=== PATIENT | male | born 1960 | race Caucasian/White ===

== ENCOUNTER 2016-11-04 11:00 | Inpatient (IN) | payer OTHER ==
--- NOTE | ~2016-11-04 | PN ---
Unit #: [id number] #: [id number] Patient: ERA DELGADILLO [id number] [facility] [address] [place] [address] [id number] I MR#: [id number] NAME: ERA DELGADILLO ROOM: P211 Age: 56 Sex: M Admission Date: 11/04/2016 : 1960 Attending Physician: Bria Winchester M.D. Admitting Physician: Bria Winchester M.D. Primary Care Physician: Primary Care Physician Ely BRANDON NOTES DATE 11/10/2016 DISCUSSION Mr. Delgadillo is a 56-year-old white male with substance abuse and mood disorder who was seen today and chart was reviewed and case was discussed with the staff who report patient has been anxious, withdrawn and seclusive to himself and has not been functioning very well as he has not been able to take care of himself and had a fall yesterday. Since then, he has been put on falls precaution and a wheelchair has been provided to him as well. However, his expectation that he does not want to take care of himself at all and nursing has been concerned if he is at a proper treatment level as he is expecting caretaking around the clock. As such, will re-evaluate him and will make further treatment decisions accordingly. Dictated by... Jannie Torres/leo TD: 11/10/2016 20:50 JOB #: [id number] ONDINA BRANDON NOTES Page 1 of 1 X Bria Winchester MD X PROGRESS NOTE
--- NOTE | ~2016-11-04 | PN ---
Unit #: [id number] #: [id number] Patient: ERA DELGADILLO [id number] [facility] [address] [place] [address] [id number] I MR#: [id number] NAME: ERA DELGADILLO. ROOM: P211 Age: 56 Sex: M Admission Date: 11/04/2016 : 1960 Attending Physician: Bria Winchester M.D. Admitting Physician: Bria Winchester M.D. Primary Care Physician: Primary Care Physician Ely [place] PROGRESS NOTES DATE 11/05/2016 DISCUSSION Mr. Delgadillo is a 56-year-old white male who was seen today and chart was reviewed and case was discussed with the staff. He has been seclusive to himself. Meanwhile, he has been cooperative with treatment recommendations and has been taking medications and tolerating them fairly well with no reported side effects. MENTAL STATUS EXAMINATION Middle-aged white male who was casually dressed with fair personal hygiene and appears to be in no acute distress or discomfort. He was awake and alert on interaction with intact orientation. His mood was anxious with congruent affect. He denies any suicidal or homicidal ideations. His insight and judgement remains slightly impaired. TREATMENT PLAN 1. Will continue on his current medications and treatment protocol. Will monitor his response and make further adjustments as needed. 2. Will continue to follow up. Dictated by... Jannie Torres/leo TD: 11/05/2016 17:48 JOB #: [id number] Unit #: [id number] #: [id number] Patient: ERA DELGADILLO ONDINA PROGRESS NOTES Page 1 of 1 X Bria Winchester MD PROGRESS NOTE
--- NOTE | ~2016-11-04 | PN ---
Unit #: [id number] #: [id number] Patient: ERA THAPA [id number] [facility] [address] [place] [address] [id number] I MR#: [id number] NAME: ERA THAPA. ROOM: P211 Age: 56 Sex: M Admission Date: 11/04/2016 : 1960 Attending Physician: Bria Winchester M.D. Admitting Physician: Bria Winchester M.D. Primary Care Physician: Primary Care Physician Ely BRANDON NOTES DATE OF SERVICE 11/07/2016 DISCUSSION Mr. Thapa is a 56-year-old white male who was seen today. Chart was reviewed and case was discussed with the staff. He has been anxious, restless, withdrawn, and rather seclusive to himself and does appear to be in some distress and discomfort. Meanwhile, he has been cooperative with the treatment recommendations and has been taking the medications and tolerating them fairly well with no reported side effects. MENTAL STATUS EXAMINATION Middle-aged white male who is casually dressed with fair personal hygiene, appears to be in slight distress or discomfort. He was awake and alert on interaction with intact orientation. His mood is anxious with congruent affect. His speech is slow and restricted in content. His insight and judgment remain significantly impaired. TREATMENT PLAN 1. We will continue him on his current medications and treatment protocol. We will monitor his response to the medications and make further adjustments as needed. 2. We will continue to follow up. Dictated by... Bria Winchester M.D. IAA/bzg TD: 11/08/2016 12:55 JOB #: [id number] Unit #: [id number] #: [id number] Patient: ERA THAPA DENZELAURORA PROGRESS NOTES Page 1 of 1 X Bria Winchester MD PROGRESS NOTE
--- NOTE | ~2016-11-04 | PN ---
Unit #: [id number] #: [id number] Patient: ERA DELGADILLO [id number] [facility] [address] [place] [address] [id number] I MR#: [id number] NAME: ERA DELGADILLO. ROOM: P211 Age: 56 Sex: M Admission Date: 11/04/2016 : 1960 Attending Physician: Bria Winchester M.D. Admitting Physician: Bria Winchester M.D. Primary Care Physician: Primary Care Physician Ely BRANDON NOTES DATE OF SERVICE: 11/08/2016 SUBJECTIVE Mr. Delgadillo is a 56-year-old white male with substance abuse and mood disorder, who was seen today and chart was reviewed, and case was discussed with the staff. He remains anxious, withdrawn, depressed, and rather seclusive to himself and blunted affect and minimal interaction. Meanwhile, he has been cooperative with treatment recommendations and has been taking the medications and tolerating them fairly well with no reported side effects. MENTAL STATUS EXAMINATION Middle-aged white male who was casually dressed with fair personal hygiene, and appears to be in no acute distress or discomfort. He was awake and alert on interaction with intact orientation. His mood was anxious with a congruent affect. He denies any suicidal or homicidal ideations. His insight and judgment remain slightly impaired. TREATMENT PLAN 1. We will continue him on his current medications and treatment protocol. We will monitor his response to the medications and make further adjustments as needed. 2. We will continue to follow up. Dictated by... Jannie Torres/eri TD: 11/08/2016 11:06 JOB #: [id number] Unit #: [id number] #: [id number] Patient: ERA DELGADILLO ONDINA PROGRESS NOTES Page 1 of 1 X Bria Winchester MD PROGRESS NOTE
--- NOTE | ~2016-11-04 | HP ---
Unit #: [id number] #: [id number] Patient: JUAN DELGADILLO [id number] [place] [address] [id number] I MR#: [id number] NAME: JUAN DELGADILLO. ROOM: P211 Age: 56 Sex: M Admission Date: 11/04/2016 : 1960 Attending Physician: Bria Winchester M.D. Admitting Physician: Bria Winchester M.D. Primary Care Physician: Primary Care Physician No HISTORY AND PHYSICAL HISTORY OF PRESENT ILLNESS Juan is a 56 year old admitted to [address] [place] [address] because of his abuse of alcohol. He is detoxing. PAST MEDICAL HISTORY 1. Long history of alcohol abuse. 2. High blood pressure. 3. Hepatitis C. PAST SURGICAL HISTORY Nothing reported. ALLERGIES No known drug allergies. SOCIAL HISTORY Smokes 1/2 pack per day. Drinks 16 malt liquors on a daily basis and denies illicit drug use. FAMILY HISTORY Medically noncontributory. REVIEW OF SYSTEMS CONSTITUTIONAL: No fever or chills. HEENT: Denies any sore throat, ear pain or runny nose. CARDIOVASCULAR: Denies chest pain, irregular heart rhythm or palpitations. CHEST: Denies shortness of breath or cough. No hemoptysis. GASTROINTESTINAL: Denies nausea, vomiting, diarrhea or chronic constipation. ENDOCRINE: Denies history of increased thirst or urination. No recent significant weight loss or gain. GENITOURINARY: Denies dysuria, frequency, or hematuria. SKIN: Denies any rashes. HEMATOLOGIC: Denies history of increased bleeding or bruising. MUSCULOSKELETAL: Denies any hot, swollen joints. No generalized muscle pain. NEUROLOGIC: Denies problems with vision or speech. No frequent, severe headaches. No numbness, tingling or weakness in any extremities. Denies loss of bladder or bowel control. CURRENT MEDICATIONS 1. Detox protocol. 2. Neurontin 300 mg t.i.d. Unit #: [id number] #: [id number] Patient: JUAN DELGADILLO 3. Zyprexa 7.5 mg daily. 4. Catapres 0.2 mg b.i.d. 5. Lopressor 50 mg b.i.d. 6. Zestril 20 mg daily. PHYSICAL EXAMINATION GENERAL: Alert, thin, in no apparent distress. VITAL SIGNS: Blood pressure 114/80, heart rate 80, respirations 16, temperature 98.6. WEIGHT: 140. HEIGHT: 5 feet 8 inches. SKIN: Warm and dry without rash or lesion. HEENT: Normocephalic. TMs not viewed. Oral and nasal passages clear. Conjunctivae clear. PERRLA. EOMs intact. NECK: Supple without lymphadenopathy or thyromegaly. HEART: Regular rate and rhythm without murmur. LUNGS: Clear. ABDOMEN: Soft, nontender. : Not done. EXTREMITIES: No evidence of cyanosis, clubbing or edema. Moves all without focal deficit. NEUROLOGICAL: Grossly within normal limits. Cranial Nerves: II: Visual orr are intact. III, IV AND : Extraocular movements are intact. Pupils are equal, round and reactive to light. V: Facial sensation is grossly normal. VII: Facial movements and expression are normal. VIII: Auditory acuity grossly intact. IX, X: Uvula is midline. Phonation is normal. XI: Patient shrugs shoulders and turns head normally. XII: Tongue protrudes in the midline. Sensory and Motor Function: Sensory and motor sensation is grossly normal. Motor: moves all extremities well. Coordination: Gait is normal. Deep Tendon Reflexes: Intact. IMPRESSION Psychiatric admission. RECOMMENDATIONS PSYCHIATRIC: Per psychiatrist. MEDICAL: See no contraindication to participate in facility's activities. MEDICAL PROGNOSIS Good. MEDICAL CONDITION Stable. Dictated by... Isabel Benson P.A.-C. for Jannie Rich/leo TD: 11/05/2016 22:03 JOB #: [id number] Unit #: [id number] #: [id number] Patient: JUAN DELGADILLO HISTORY AND PHYSICAL Page 1 of 1 X Isabel Benson X HISTORY AND PHYSICAL
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
--- NOTE | ~2016-11-04 | PN ---
Unit #: [id number] #: [id number] Patient: ERA DELGADILLO [id number] [facility] [address] [place] [address] [id number] I MR#: [id number] NAME: ERA DELGADILLO. ROOM: P211 Age: 56 Sex: M Admission Date: 11/04/2016 : 1960 Attending Physician: Bria Winchester M.D. Admitting Physician: Bria Winchester M.D. Primary Care Physician: Primary Care Physician Ely [place] PROGRESS NOTES DATE 11/06/2016 DISCUSSION Mr. Delgadillo is a 56-year-old, white male who was seen today and chart was reviewed and case was discussed with the staff. He has been anxious, withdrawn rather seclusive to himself. Meanwhile, he has been cooperative with treatment recommendations. He has been taking the medication and tolerating them fairly well with no reported side effects. MENTAL STATUS EXAM Middle-aged white male who was casually dressed with fair personal hygiene, appears to be in no acute distress or discomfort. He was awake and alert on interaction with intact orientation. His mood was anxious with congruent affect. His speech was slow and goal directed. He denies any suicidal or homicidal ideation. His insight and judgement remains slightly impaired. TREATMENT PLAN 1. We will continue him on his current medications and treatment protocol. We will monitor his response to the medication and make further adjustments as needed. 2. We will continue to follow up. Dictated by... Jannie Torres/catrachito TD: 11/07/2016 20:57 JOB #: [id number] Unit #: [id number] #: [id number] Patient: ERA DELGADILLO PROGRESS NOTES Page 1 of 1 X Bria Winchester MD PROGRESS NOTE
--- NOTE | ~2016-11-04 | DS ---
Unit #: [id number] #: [id number] Patient: ERA THAPA [id number] [place] [address] [id number] I MR#: [id number] NAME: ERA THAPA. ROOM: [facility] Age: 56 Sex: M Admission Date: 11/04/2016 : 1960 Discharge Date: 11/11/2016 Attending Physician: Bria Winchester M.D. Primary Care Physician: Primary Care Physician No DISCHARGE SUMMARY IDENTIFICATION DATA Mr. Thapa is a 56-year-old white male with history of mood disorder who was self-referred to the hospital. DISCHARGE DIAGNOSES PSYCHIATRIC: Bipolar disorder, most recent episode, depressed, recurrent, moderate, without psychotic features. Alcohol dependence, moderate, in acute withdrawals. MEDICAL: Hypertension. STRESSORS: Moderate psychosocial stressors. HISTORY OF PRESENT ILLNESS Same as in initial psychiatric evaluation. PAST PSYCHIATRIC HISTORY Same as in initial psychiatric evaluation. PAST MEDICAL HISTORY Same as in initial psychiatric evaluation. HOSPITAL COURSE The patient was admitted to the adult psychiatric and chemical dependence unit at [facility] and was oriented to the hospital environment. Routine p.r.n. medications were initiated, and he was started back on his home medications. Medications were adjusted and detox protocol for alcohol was initiated as well, and he was closely monitored. He was taking the medications regularly and was tolerating them fairly well and was able to show a decent therapeutic response with improvement in depression and anxiety and is willing to continue treatment on outpatient basis. As such it was decided that he will be discharged, and we will continue treatment on outpatient basis. CONDITION AT DISCHARGE Stable. PROGNOSIS Fair. Dictated by... Bria Winchester M.D. IAA/bzg Unit #: [id number] #: [id number] Patient: ERA THAPA TD: 11/27/2016 13:59 JOB #: [id number] DISCHARGE SUMMARY Page 1 of 1 X Bria Winchester MD DISCHARGE SUMMARY
--- NOTE | ~2016-11-04 | CR90 ---
[facility] A Service of [facility] & [facility] RADIOLOGY TEXT RESULTS PATIENT: ERA DELGADILLO LOCATION: P2S P211-2 : [birth year] UNIT #: [id number] AGE: [address]: Bria Winchester MD SEX: M ORDER DR: [id number] [facility] [address]. [place], [place] [address] [id number] I MR#: [id number] Acc #: [id number] NAME: ERA DELGADILLO : 1960 SEX: M STUDY DATE/TIME: 11/09/2016 16:54 UNIT: P2S ROOM: [facility] STUDY DESCRIPTION: CR Elbow 2 View Lt Attending Physician: Bria Winchester M.D. Ordering Physician: Bria Winchester M.D. Primary Care Physician: No Primary Care Physician MEDICAL IMAGING REPORT This report is preliminary unless electronic signature is present EXAM Left elbow, 11/09/2016. HISTORY Left elbow pain for 1-1/2 weeks, status post fall. FINDINGS AP and lateral examination of the elbow shows satisfactory articulation of the humerus with the proximal radius and ulna. There is no identifiable fracture, dislocation, joint effusion, or radiopaque foreign body in the soft tissues. IMPRESSION Normal left elbow. Dictated by... Jelani Bass M.D. THIS IS AN ELECTRONICALLY VERIFIED REPORT Jelani Bass M.D. at 11/10/2016 2:18 PM SEJAL/alexx TD: 11/09/2016 23:14 JOB #: [id number] MEDICAL IMAGING REPORT Page 1 of 1 COPY
--- NOTE | ~2016-11-04 | PN ---
Unit #: [id number] #: [id number] Patient: ERA DELGADILLO [id number] [facility] [address] [place] [address] [id number] I MR#: [id number] NAME: ERA DELGADILLO ROOM: P211 Age: 56 Sex: M Admission Date: 11/04/2016 : 1960 Attending Physician: Bria Winchester M.D. Admitting Physician: Bria Winchester M.D. Primary Care Physician: Primary Care Physician Ely BRANDON NOTES DATE OF SERVICE 11/09/2016 DISCUSSION Mr. Delgadillo is a 56-year-old white male who was seen today. Chart was reviewed and case was discussed with the staff. He has been anxious, withdrawn, and rather seclusive to himself. Meanwhile, he has been cooperative with the treatment recommendations though has been anxious, restless, and has been complaining of being unsteady in his feet and did have a fall today. Staff reported that he was feeling nauseous, and his blood pressure and heart rate were high as well, and as such the Phenergan and clonidine has been left available. Medical consultation has been requested for any sustained injuries during the fall. We will continue to monitor response to treatment interventions and make further adjustments as needed. Dictated by... Jannie Torres/ashley TD: 11/10/2016 10:34 JOB #: [id number] ONDINA PROGRESS NOTES Page 1 of 1 X Bria Winchester MD PROGRESS NOTE
--- NOTE | ~2016-11-04 | CR229 ---
[facility] A Service of [facility] & [facility] RADIOLOGY TEXT RESULTS PATIENT: ERA DELGADILLO LOCATION: P2S P211-2 : [birth year] UNIT #: [id number] AGE: [address]: Bria Winchester MD SEX: M ORDER DR: [id number] [facility] [address]. [place], [place] [address] [id number] I MR#: [id number] Acc #: [id number] NAME: ERA DELGADILLO : 1960 SEX: M STUDY DATE/TIME: 11/09/2016 17:05 UNIT: [facility] ROOM: [facility] STUDY DESCRIPTION: CR Shoulder Min 2 View Lt Attending Physician: Bria Winchester M.D. Ordering Physician: Bria Winchester M.D. MEDICAL IMAGING REPORT This report is preliminary unless electronic signature is present EXAM Left shoulder 4 views 11/09/2016 HISTORY Left shoulder pain status post fall 1.5 weeks ago. Persistent pain. FINDINGS AP view with internal and external rotation of the shoulder girdle shows satisfactory relationship of the humeral head and glenoid fossa. The joint space is normal. There is no identifiable fracture or dislocation or bony destructive process about the shoulder girdle anatomy. The acromioclavicular joint is normal. There is no radiopaque foreign body in the region. IMPRESSION Normal shoulder. Dictated by... Jelani Bass M.D. THIS IS AN ELECTRONICALLY VERIFIED REPORT Jelani Bass M.D. at 11/10/2016 2:18 PM KRT/pcl TD: 11/09/2016 23:03 JOB #: [id number] MEDICAL IMAGING REPORT Page 1 of 1 COPY
--- NOTE | ~2016-11-04 | CO ---
Unit #: [id number] #: [id number] Patient: ERA DELGADILLO [id number] [facility] [address] [place] [address] [id number] I MR#: [id number] NAME: ERA DELGADILLO. ROOM: [facility] Age: 56 Sex: M Admission Date: 11/04/2016 : 1960 Attending Physician: Bria Winchester M.D. Primary Care Physician: Primary Care Physician No Consultation Date: 11/10/2016 CONSULTATION REPORT JOHNSON Martinez is a 56-year-old admitted on 11/04/2016 because of his abuse of alcohol. He was being treated for his detox symptoms. On the morning of 11/10/2016, nursing staff noted significant mental status changes. We were asked to assess and give recommendations. OBJECTIVE GENERAL: Thin elderly gentleman, appearing much, much older than his stated age of 56, sitting in a wheelchair, slumped over, drooling on himself. He is oriented x0. VITAL SIGNS: Blood pressure 102/66, heart rate 72, respirations 16, T-max 101.3. SKIN: Warm and dry. CARDIOVASCULAR: Rate and rhythm is regular. CHEST: Decreased breath sounds, but clear. EXTREMITIES: Moves all without focal deficit. He is unable to stand without assistance. ASSESSMENT Altered mental status. PLAN An ambulance was called through the [employer] system. He was transported to a local emergency room where he will be assessed and treated. Dictated by... Isabel Benson P.A.-C. for Jannie Rich/eri TD: 11/15/2016 22:53 JOB #: [id number] Unit #: [id number] #: [id number] Patient: ERA DELGADILLO CONSULTATION REPORT Page 1 of 1 X Isabel Benson CONSULTATION REPORT
== END 2016-11-11 02:46 | disposition short-term general hospital (02) | DRG 885 ==
LOC: P2S 17:44
PROC: HZ2ZZZZ Detoxification Services for Substance Abuse Treatment (ICD-10-PCS; principal; 2016-11-04)
DX: F33.1 Major depressive disorder, recurrent, moderate (principal); I10 Essential (primary) hypertension; F10.239 Alcohol dependence with withdrawal, unspecified; Z59.0 Homelessness; Z56.0 Unemployment, unspecified; B19.20 Unspecified viral hepatitis C without hepatic coma
CPT/HCPCS: 73030; 73070; 82947